=== PATIENT | male | born 1965 | race Caucasian/White ===

== ENCOUNTER 2019-09-18 22:12 | Emergency (ER) | payer BC ==
[2019-09-18] MEDS ORDERED: Silver Sulfadiazine 1% Crm 50 GM Tube TOP STA (22:28)
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
== END 2019-09-18 22:45 | disposition home or self-care (01) ==
LOC: JD.ED 22:12
DX: T23.202A Burn of second degree of left hand, unspecified site, initial encounter (principal); T20.16XA Burn of first degree of forehead and cheek, initial encounter; Z88.0 Allergy status to penicillin; Z87.891 Personal history of nicotine dependence; X08.8XXA Exposure to other specified smoke, fire and flames, initial encounter
CPT/HCPCS: 16020; 99283; A9270